=== PATIENT | male | born 1945 | race Caucasian/White ===

== ENCOUNTER 2020-08-22 23:11 | Observation (INO) | payer MEDICARE ==
[~2020-08-22] VITALS: Ht 182.9 cm; Wt 166.0 kg
--- NOTE | 2020-08-22 23:15 | NUR ---
ARRIVED VIA EMS. TO ROOM VIA STRETCHER.
[2020-08-22 23:50] LABS: HEMATOCRIT 46.2 % (39.0-50.0); HEMOGLOBIN 14.8 g/dl (14.0-18.0); IMMATURE GRANULOCYTES 0.5 % (0.0-5.0); MEAN CELL VOLUME 97.5 fL CALC (80.0-100.0); MEAN CORPUSCULAR HGB 31.2 pG CALC (26.0-32.0); NEUT# 8.08 thou/uL (1.82-7.42); RED BLOOD COUNT 4.74 mill/uL (4.70-6.10); RED CELL DISTRI WIDTH 13.5 % (11.5-15.5)
[2020-08-22 23:52] LABS: URINE BILIRUBIN - DIPSTICK NEGATIVE (NEGATIVE); URINE BLOOD DIPSTICK NEGATIVE (NEGATIVE); URINE COLOR YELLOW; URINE GLUCOSE - DIPSTICK 100 mg/dL (NEGATIVE); URINE KETONE NEGATIVE (NEGATIVE); URINE LEUK ESTERASE NEGATIVE (NEGATIVE); URINE NITRITE - DIPSTICK NEGATIVE (Negative); URINE PROTEIN - DIPSTICK 30 mg/dL (NEG-TRACE); URINE SPECIFIC GRAVITY >=1.030; URINE UROBILINOGEN - DIPSTICK 0.2 E.U./dL (0.2)
[2020-08-22 23:58] LABS: URINE BACTERIA MODERATE hpf; URINE EPITHELIAL CELLS MODERATE EPI/hpf (0-FEW); URINE HYALINE CAST FEW lpf (NONE-RARE); URINE MUCUS MODERATE hpf (NONE-FEW)
[2020-08-22 23:59] LABS: URINE COARSE GRANULAR CAST FEW lpf; URINE FINE GRAN CAST FEW lpf
--- NOTE | 2020-08-23 | NUR ---
CONTACTED RICKI YUSUF, , FRIEND OF PT. THEY STATED THAT THE PT HAS BEEN INCREASINGLY CONFUSED OVER THE LAST 2 MONTHS. STATED THAT HE HAS BEEN MISSING SINCE YESTERDAY AM. [facility] HAD RSOY IN PROGRESS ON PT. THE FRIEND ALSO STATED THAT [facility] HAD BEEN CONTACTED REGARDING HIM. MONKEY BREEDER MISAEL OLIVER [phone].
[2020-08-23 00:05] LABS: ALBUMIN 3.5 g/dL (3.2-5.0); ALKALINE PHOSPHATASE 68 u/l (38-126); ANION GAP 11 (6-22 (CALC)); BILIRUBIN, TOTAL 0.7 mg/dL (0.0-1.4); BUN 23 mg/dL (8-23); BUN/CREATININE RATIO 18 (12-20 (CALC)); CARBON DIOXIDE 25 mmol/l (22-30); CHLORIDE 107 mmol/l (95-108); CREATININE 1.3 mg/dL (0.7-1.3); ETHYL ALCOHOL 0 mg/dl (0-30); GFR 54 ML/MIN (>=60 (CALC)); GFR FOR AFR.AMER. > 60 ML/MIN (>=60 (CALC)); POTASSIUM 4.1 mmol/l (3.5-5.1); SGOT/AST 19 u/l (19-48); SODIUM 139 mmol/l (137-146); TOTAL PROTEIN 6.2 g/dL (6.3-8.2)
[2020-08-23 00:16] LABS: MYOGLOBIN 74 ng/mL (0 - 121)
--- NOTE | 2020-08-23 00:30 | NUR ---
CONTACTED [facility] REGARDING ROSY ON PT. THE OFFICER THAT IS FAMILIAR WITH ROSY WILL BE CALLING ME.
--- NOTE | 2020-08-23 01:00 | NUR ---
NOTIFIED DISPATCH REGARDING THIS PT HAVING A ROSY FROM [facility]. ADVISED THEY WOULD SEND OFFICER HERE.
--- NOTE | 2020-08-23 01:04 | NUR ---
CONTACTED [facility] REGARDING PT THEY HAD A [employer] CONTACT WITH THE PT. [employer]PER[employer] WAS MISAEL OLIVER, .
--- NOTE | 2020-08-23 01:31 | NUR ---
FAXED REQUEST FOR MEDICAL RECORDS TO [facility]. FAX # [phone]
[2020-08-23 02:00] LABS: PROTHROMBIN TIME 9.9 SECONDS (9.0-12.5)
--- NOTE | 2020-08-23 02:45 | NUR ---
Admission Note Report Given to: MARGA CRUMP Transported by: Wheelchair X Stretcher Transported with: X Nurse Transporter X Patent IV X O2 X Team Facilitator Location: ICU X [facility]2
[2020-08-23 02:50] VITALS: BP 159/96
--- NOTE | 2020-08-23 03:00 | NUR ---
Pt arrived to floor from ED by stretcher, ambulated to bed with walker and stand-by assist. Report and SBAR recieved from George in ED. Pt used urinal, vitals assessed, admission documented and Pt resting without S/S of discomfort.
--- NOTE | 2020-08-23 04:28 | NUR ---
Some of pt personal belongings were sent to safe.
[2020-08-23 07:15] VITALS: BP 150/89
--- NOTE | 2020-08-23 07:15 | NUR ---
PATIENT IN BED AT THIS TIME ALERT AND ORIENTED DENIES ANY PAIN ALL SAFETY MEASURES IN PLACE CALL LIGHT WITHIN REACH. SIDERAILS UP X 2. WARP DRESSER DONE AT THIS TIME SEE INTERVENTIONS.
[2020-08-23 11:45] VITALS: BP 148/83
--- NOTE | 2020-08-23 11:46 | NUR ---
PATIENT RESTING IN BED RESPIRATIONS EASY AND UNLABORED AT THIS TIME. PATIENT DENIES ANY NEEDS. TELE-MONITOR IN PLACE ALL SAFETY MEASURES ARE IN PLACE.
[2020-08-23 14:22] VITALS: BP 148/83
[2020-08-23] MEDS ORDERED: CARVEDILOL25 MG PO (15:57)
[2020-08-23] MEDS ORDERED: LANOXIN PED0.1 MG/ML PO (15:57)
[2020-08-23] MEDS ORDERED: ELIQUIS2.5 MG PO (15:57)
--- NOTE | 2020-08-23 15:57 | NUR ---
PATIENT D/C AT THIS TIME PATIENT VERBALIZES UNDERSTANDING OF D/C AT THIS TIME. PATIENT DENIES ANY NEEDS. HAND HARDENER REPORTS THAT SHE WILL HAVE [employer] CONTACT PATIENT AT HOME.
--- NOTE | 2020-08-23 18:26 | NUR ---
Discharge instructions given. Patient verbalizes understanding of same. Discharged in stable condition via Wheelchair to Home with friend. All belongings sent with pt.
== END 2020-08-23 18:30 | disposition home health service (06) ==
LOC: ED 23:11 → ED-I 08-23 01:32 → ED 08-23 01:47 → MS2 08-23 01:48
PROVIDERS: Emergency Medicine; ADMIT Internal Medicine; ATTEND Internal Medicine
DX: R41.82 Altered mental status, unspecified (principal); E11.9 Type 2 diabetes mellitus without complications; I10 Essential (primary) hypertension; I25.10 Atherosclerotic heart disease of native coronary artery without angina pectoris; I48.91 Unspecified atrial fibrillation; Z95.0 Presence of cardiac pacemaker; Z79.01 Long term (current) use of anticoagulants; Z20.828 Contact with and (suspected) exposure to other viral communicable diseases